=== PATIENT | female | born 1990 | race Caucasian/White ===

== ENCOUNTER 2017-07-18 18:54 | Outpatient (CLI) | payer OTHER ==
[2017-07-18 19:53] LABS: ADD UMIC YES; UR ASCORBIC ACID NEGATIVE (NEGATIVE); UR BACTERIA FEW /HPF (NONE SEEN); UR BILIRUBIN (Dip) NEGATIVE (NEGATIVE); UR BLOOD (Dip) NEGATIVE (NEGATIVE); UR CLARITY CLEAR (CLEAR); UR COLOR YELLOW (YELLOW); UR GLUCOSE (Dip) NEGATIVE (NEGATIVE); UR KETONES (Dip) TRACE mg/dL (NEGATIVE); UR LEUKOCYTE ESTERASE (Dip) 3+ Leu/ul (NEGATIVE); UR NITRITE (Dip) NEGATIVE (NEGATIVE); UR RBC 2 /HPF (0-5); UR SPECIFIC GRAVITY (Dip) 1.008 (1.003-1.030); UR SQUAMOUS EPITHELIAL CELL FEW /HPF (FEW); UR TOTAL PROTEIN (Dip) NEGATIVE (NEGATIVE); UR UROBILINOGEN (Dip) NEGATIVE (NEGATIVE); UR WBC 2 /HPF (0-5)
[2017-07-18 20:09] LABS: RUPTURE FETAL MEMBRANES NEGATIVE (NEGATIVE)
[2017-07-18] MEDS ORDERED: TERBUTALINE 1 MG/ML INJ SC ×2 (20:30)
[2017-07-18] MEDS ORDERED: LACTATED RINGER'S 1,000 ML IV* (20:30)
[2017-07-18] MEDS: BETAMET NA PHOS/AC(6 MG/ML) 5ML INJ IM (20:59)
== END 2017-07-18 23:02 | disposition home or self-care (01) ==
LOC: OBT 18:54 → L-D 18:56 → OBT 23:02
DX: O47.03 False labor before 37 completed weeks of gestation, third trimester (principal); Z3A.35 35 weeks gestation of pregnancy
CPT/HCPCS: 76817; 76818; 81001; 84112

== ENCOUNTER 2017-07-19 21:00 | Outpatient (CLI) | payer OTHER ==
[2017-07-19] MEDS: NIFEdipine 10 MG CAP PO (22:00)
[2017-07-19] MEDS: BETAMET NA PHOS/AC(6 MG/ML) 5ML INJ IM (22:07)
[2017-07-20] MEDS: NIFEdipine 10 MG CAP PO (00:15)
[2017-07-20] MEDS ORDERED: NIFEdipine 10 MG CAP PO (01:30)
== END 2017-07-20 01:35 | disposition home or self-care (01) ==
LOC: OBT 21:00 → L-D 21:01
DX: O47.03 False labor before 37 completed weeks of gestation, third trimester (principal); Z3A.35 35 weeks gestation of pregnancy
CPT/HCPCS: 36415; 96372

== ENCOUNTER 2017-08-02 09:56 | Outpatient (CLI) | payer OTHER ==
[2017-08-02] MEDS: ACETAMINOPHEN 500 MG TAB PO (12:53)
== END 2017-08-02 13:55 | disposition home or self-care (01) ==
LOC: OBT 09:56 → L-D 09:56 → OBT 13:55
DX: O62.9 Abnormality of forces of labor, unspecified (principal); Z3A.37 37 weeks gestation of pregnancy
CPT/HCPCS: 76818

== ENCOUNTER 2017-08-08 03:27 | Inpatient (IN) | payer OTHER ==
[2017-08-08] MEDS ORDERED: LACTATED RINGER'S 1,000 ML IV (03:56)
[2017-08-08] MEDS ORDERED: LIDOCAINE 1% (MPF) 30 ML INJ INJ (04:00)
[2017-08-08] MEDS ORDERED: MISOPROSTOL 200 MCG TAB PR (04:00)
[2017-08-08] MEDS ORDERED: METHYLERGONOVINE 0.2 MG INJ IM (04:00)
[2017-08-08] MEDS ORDERED: CARBOPROST 250 MCG INJ IM (04:00)
[2017-08-08] MEDS ORDERED: OXYTOCIN 30 UNITS/LR 500 ML IV ×2 (04:00)
[2017-08-08] MEDS ORDERED: AMPICILLIN 2 GM/NS (PMX) 100 ML (04:10)
[2017-08-08] MEDS: LACTATED RINGER'S 1,000 ML IV ×3 (04:34→15:30)
[2017-08-08] MEDS: AMPICILLIN 2 GM/NS (PMX) 100 ML IV (04:35)
[2017-08-08 04:58] LABS: ADD MAN DIFF? NO
[2017-08-08 05:00] LABS: BASOPHILS % 0.3 % (0.0-2.0); EOSINOPHILS # 0.1 10^3/ul (0.0-0.5); EOSINOPHILS % 0.6 % (0.0-7.0); LYMPHOCYTES # 2.2 10^3/ul (0.8-2.9); LYMPHOCYTES % 18.8 % (15.0-51.0); MEAN CORPUSCULAR HEMOGLOBIN 31.7 pg (29.0-33.0); MEAN CORPUSCULAR HGB CONC 34.2 g/dl (32.0-37.0); MEAN CORPUSCULAR VOLUME 92.7 fl (82.0-101.0); MONOCYTE # 0.8 10^3/ul (0.3-0.9); MONOCYTES % 6.8 % (0.0-11.0); NEUTROPHIL # 8.3 10^3/ul (1.6-7.5); NEUTROPHILS % 72.7 % (39.0-77.0); PLATELET COUNT 183 10^3/UL (140-415); RED CELL DISTRIBUTION WIDTH 13.7 % (11.5-14.5)
[2017-08-08 05:00] LABS: WHITE BLOOD COUNT 11.4 10^3/ul (4.8-10.8)
[2017-08-08] MEDS ORDERED: MINERAL OIL LIGHT 10 ML VIAL TOP (05:00)
[2017-08-08 05:21] LABS: PROTIME 11.1 Sec (11.9-14.9); PT RATIO 0.9
[2017-08-08 05:22] LABS: PARTIAL THROMBOPLASTIN TIME 25.5 Sec (25.0-35.0)
[2017-08-08 05:50] LABS: HEPATITIS B SURFACE ANTIGEN NEGATIVE (NEGATIVE)
[2017-08-08] MEDS: BUTORPHANOL 2 MG INJ IV (05:54)
[2017-08-08] MEDS: AMPICILLIN 1 GM/NS (PMX) 50 ML IV ×5 (08:29→23:48)
[2017-08-08] MEDS ORDERED: FENTAnyl 2MCG/ML-ROPIV 0.2% 100 ML (09:14)
[2017-08-08 15:20] LABS: RAPID PLASMA REAGIN NONREACTIVE (NR)
[2017-08-08] MEDS: OXYTOCIN 30 UNITS/LR 500 ML IV (15:32)
[2017-08-08] MEDS: FENTAnyl 2MCG/ML-ROPIV 0.2% 100 ML BAG EPI ×2 (16:38→23:57)
[2017-08-08] MEDS ORDERED: NALOXONE (0.4 MG/ML) INJ IV (17:00)
[2017-08-09] MEDS: ACETAMINOPHEN 500 MG TAB PO (03:23)
[2017-08-09] MEDS: LACTATED RINGER'S 1,000 ML IV ×3 (03:46→23:12)
[2017-08-09] MEDS: GENTAMICIN 120 MG/NS (PMX) 100 ML IVPB (04:07)
[2017-08-09] MEDS: AMPICILLIN 1 GM/NS (PMX) 50 ML IV ×3 (04:08→09:18)
[2017-08-09] MEDS ORDERED: OXYTOCIN 30 UNITS/LR 500 ML IV ×2 (08:30→13:30)
[2017-08-09] MEDS ORDERED: CEFAZOLIN 2 GM/50 ML (PMX) 50 ML IV (08:30)
[2017-08-09] MEDS: METOCLOPRAMIDE 10 MG INJ IV (08:41)
[2017-08-09] MEDS: ONDANSETRON 4 MG INJ IV ×2 (08:41→14:29)
[2017-08-09] MEDS: FAMOTIDINE 20 MG INJ IV (08:41)
[2017-08-09] MEDS ORDERED: morphine SULFATE/PF (10 MG/10 ML) INJ (08:51)
[2017-08-09] MEDS ORDERED: BUPIVACAINE 0.75%/DEXT (SPINAL) 2 ML INJ (08:52)
[2017-08-09] MEDS ORDERED: OXYTOCIN 10 UNIT INJ (08:52)
[2017-08-09] MEDS ORDERED: EPINEPHrine 1 MG INJ (08:56)
[2017-08-09] MEDS ORDERED: PHENYLephrine (100 MCG/ML) 5ML SYG (09:44)
[2017-08-09] MEDS ORDERED: MIDAZOLAM 1 MG/ML 2 ML INJ (09:50)
[2017-08-09] MEDS ORDERED: PROPOFOL 20 ML (10:00)
[2017-08-09] MEDS ORDERED: HYDROmorphONE 2 MG/ML SYG (10:17)
[2017-08-09] MEDS ORDERED: DIPHENHYDRAMINE 50 MG INJ IV ×3 (11:00→13:30)
[2017-08-09] MEDS ORDERED: NALOXONE (0.4 MG/ML) INJ IV (11:00)
[2017-08-09] MEDS ORDERED: FENTAnyl 50 MCG/ML VIAL IV ×2 (11:00)
[2017-08-09] MEDS ORDERED: KETOROLAC 30 MG INJ IV (11:00)
[2017-08-09] MEDS ORDERED: NALBUPHINE HCL (10 MG/1 ML) INJ IV (11:00)
[2017-08-09] MEDS ORDERED: ZOLPIDEM 5 MG TAB PO ×2 (11:00→13:30)
[2017-08-09] MEDS ORDERED: HYDROmorphONE 1 MG/5 ML IV SYRINGE IV ×3 (11:00)
[2017-08-09] MEDS ORDERED: HYDROmorphONE 0.5 MG/0.5 ML SYG IV ×2 (11:00)
[2017-08-09] MEDS ORDERED: ONDANSETRON 4 MG INJ IV ×2 (11:00→13:30)
[2017-08-09] MEDS: OXYTOCIN 30 UNITS/LR 500 ML IV (11:35)
[2017-08-09] MEDS: KETOROLAC 30 MG INJ IV (11:46)
[2017-08-09] MEDS ORDERED: CARBOPROST 250 MCG INJ IM (13:30)
[2017-08-09] MEDS ORDERED: METHYLERGONOVINE 0.2 MG INJ IM (13:30)
[2017-08-09] MEDS ORDERED: MISOPROSTOL 200 MCG TAB PR (13:30)
[2017-08-09] MEDS: MINERAL OIL LIGHT 10 ML VIAL TOP (14:05)
[2017-08-09] MEDS: GENTAMICIN 80 MG/NS (PMX) 50 ML IVPB (14:05)
[2017-08-09] MEDS: ACETAMINOPHEN 1000MG/100ML IV 100 ML IVPB (14:05)
[2017-08-09] MEDS: LANOLIN 7 GM TUBE TOP (14:30)
[2017-08-10] MEDS: LACTATED RINGER'S 1,000 ML IV ×3 (06:45→21:07)
[2017-08-10 09:44] LABS: ADD MAN DIFF? NO
[2017-08-10 09:52] LABS: BASOPHIL # 0.1 10^3/ul (0.0-0.1); BASOPHILS % 0.3 % (0.0-2.0); EOSINOPHILS % 0.2 % (0.0-7.0); HEMATOCRIT 31.9 % (37.0-47.0); HEMOGLOBIN 11.1 g/dl (12.0-16.0); LYMPHOCYTES # 1.1 10^3/ul (0.8-2.9); LYMPHOCYTES % 6.9 % (15.0-51.0); MEAN CORPUSCULAR HEMOGLOBIN 32.3 pg (29.0-33.0); MEAN CORPUSCULAR HGB CONC 34.8 g/dl (32.0-37.0); MEAN CORPUSCULAR VOLUME 92.7 fl (82.0-101.0); MEAN PLATELET VOLUME 10.6 fl (7.4-10.4); MONOCYTE # 0.9 10^3/ul (0.3-0.9); MONOCYTES % 5.5 % (0.0-11.0); NEUTROPHIL # 13.9 10^3/ul (1.6-7.5); NEUTROPHILS % 85.9 % (39.0-77.0); PLATELET COUNT 180 10^3/UL (140-415); RED BLOOD COUNT 3.44 10^6/ul (4.20-5.40); RED CELL DISTRIBUTION WIDTH 13.6 % (11.5-14.5)
[2017-08-10 09:52] LABS: WHITE BLOOD COUNT 16.2 10^3/ul (4.8-10.8)
[2017-08-10] MEDS: SENNA/DOCUSATE NA (8.6MG/50MG) TAB PO ×2 (10:14→21:52)
[2017-08-10] MEDS: OXYCODONE/ACETAMINOPHEN (5/325) TAB PO ×2 (10:28→16:16)
[2017-08-10] MEDS: IBUPROFEN 600 MG TAB PO ×4 (12:00→18:32)
[2017-08-10] MEDS: CEFAZOLIN 2 GM/50 ML (PMX) 50 ML IVPB ×2 (12:43→21:52)
[2017-08-11] MEDS: IBUPROFEN 600 MG TAB PO ×4 (00:30→17:58)
[2017-08-11] MEDS: OXYCODONE/ACETAMINOPHEN (5/325) TAB PO ×3 (01:53→17:06)
[2017-08-11] MEDS: LACTATED RINGER'S 1,000 ML IV ×3 (05:28→21:28)
[2017-08-11] MEDS: CEFAZOLIN 2 GM/50 ML (PMX) 50 ML IVPB (05:46)
[2017-08-11] MEDS: SENNA/DOCUSATE NA (8.6MG/50MG) TAB PO ×2 (08:48→21:47)
[2017-08-11 10:01] LABS: ADD MAN DIFF? NO
[2017-08-11 10:03] LABS: WHITE BLOOD COUNT 13.7 10^3/ul (4.8-10.8)
[2017-08-11 10:03] LABS: BASOPHILS % 0.3 % (0.0-2.0); EOSINOPHILS # 0.2 10^3/ul (0.0-0.5); EOSINOPHILS % 1.2 % (0.0-7.0); HEMATOCRIT 35.8 % (37.0-47.0); HEMOGLOBIN 11.7 g/dl (12.0-16.0); LYMPHOCYTES # 1.7 10^3/ul (0.8-2.9); LYMPHOCYTES % 12.4 % (15.0-51.0); MEAN CORPUSCULAR HEMOGLOBIN 31.4 pg (29.0-33.0); MEAN CORPUSCULAR HGB CONC 32.7 g/dl (32.0-37.0); MEAN PLATELET VOLUME 10.7 fl (7.4-10.4); MONOCYTE # 0.6 10^3/ul (0.3-0.9); MONOCYTES % 4.5 % (0.0-11.0); NEUTROPHILS % 80.7 % (39.0-77.0); PLATELET COUNT 234 10^3/UL (140-415); RED BLOOD COUNT 3.73 10^6/ul (4.20-5.40); RED CELL DISTRIBUTION WIDTH 13.7 % (11.5-14.5)
[2017-08-11 12:59] LABS: ADD UMIC YES; UR ASCORBIC ACID NEGATIVE (NEGATIVE); UR BILIRUBIN (Dip) NEGATIVE (NEGATIVE); UR BLOOD (Dip) 3+ mg/dL (NEGATIVE); UR CLARITY CLEAR (CLEAR); UR COLOR YELLOW (YELLOW); UR GLUCOSE (Dip) NEGATIVE (NEGATIVE); UR KETONES (Dip) NEGATIVE (NEGATIVE); UR LEUKOCYTE ESTERASE (Dip) NEGATIVE Leu/ul (NEGATIVE); UR NITRITE (Dip) NEGATIVE (NEGATIVE); UR RBC 7 /HPF (0-5); UR SPECIFIC GRAVITY (Dip) 1.011 (1.003-1.030); UR TOTAL PROTEIN (Dip) NEGATIVE (NEGATIVE); UR UROBILINOGEN (Dip) NEGATIVE (NEGATIVE); UR WBC 2 /HPF (0-5)
[2017-08-12] MEDS: IBUPROFEN 600 MG TAB PO ×3 (00:09→12:56)
[2017-08-12] MEDS: HYDROCORTISONE 2.5% 20 GM CR TOP ×3 (00:09→22:27)
[2017-08-12] MEDS: OXYCODONE/ACETAMINOPHEN (5/325) TAB PO (03:21)
[2017-08-12] MEDS: LACTATED RINGER'S 1,000 ML IV ×3 (05:28→21:28)
[2017-08-12] MEDS: SENNA/DOCUSATE NA (8.6MG/50MG) TAB PO ×2 (08:51→22:27)
[2017-08-13] MEDS: LACTATED RINGER'S 1,000 ML IV ×3 (05:28→23:46)
[2017-08-13] MEDS: IBUPROFEN 600 MG TAB PO ×4 (05:44→23:36)
[2017-08-13] MEDS: SENNA/DOCUSATE NA (8.6MG/50MG) TAB PO ×2 (09:00→21:18)
[2017-08-13 14:57] LABS: ADD UMIC YES; UR ASCORBIC ACID NEGATIVE (NEGATIVE); UR BILIRUBIN (Dip) NEGATIVE (NEGATIVE); UR BLOOD (Dip) 2+ mg/dL (NEGATIVE); UR CLARITY CLEAR (CLEAR); UR COLOR STRAW (YELLOW); UR GLUCOSE (Dip) NEGATIVE (NEGATIVE); UR KETONES (Dip) NEGATIVE (NEGATIVE); UR LEUKOCYTE ESTERASE (Dip) NEGATIVE Leu/ul (NEGATIVE); UR NITRITE (Dip) NEGATIVE (NEGATIVE); UR RBC 6 /HPF (0-5); UR TOTAL PROTEIN (Dip) NEGATIVE (NEGATIVE); UR UROBILINOGEN (Dip) NEGATIVE (NEGATIVE); UR WBC 1 /HPF (0-5)
[2017-08-13 15:00] LABS: ADD MAN DIFF? NO
[2017-08-13 15:07] LABS: ABNORMAL IP MESSAGE 1; BASOPHILS % 0.1 % (0.0-2.0); EOSINOPHILS % 0.2 % (0.0-7.0); HEMATOCRIT 29.7 % (37.0-47.0); HEMOGLOBIN 10.2 g/dl (12.0-16.0); LYMPHOCYTES # 0.5 10^3/ul (0.8-2.9); LYMPHOCYTES % 6.4 % (15.0-51.0); MEAN CORPUSCULAR HEMOGLOBIN 32.3 pg (29.0-33.0); MEAN CORPUSCULAR HGB CONC 34.3 g/dl (32.0-37.0); MEAN PLATELET VOLUME 9.8 fl (7.4-10.4); MONOCYTE # 0.4 10^3/ul (0.3-0.9); MONOCYTES % 5.1 % (0.0-11.0); PLATELET COUNT 226 10^3/UL (140-415); RED BLOOD COUNT 3.16 10^6/ul (4.20-5.40); RED CELL DISTRIBUTION WIDTH 13.1 % (11.5-14.5)
[2017-08-13 15:07] LABS: WHITE BLOOD COUNT 8.1 10^3/ul (4.8-10.8)
[2017-08-13 15:12] LABS: POSITIVE DIFF @See below
[2017-08-13] MEDS: HYDROCORTISONE 2.5% 20 GM CR TOP ×4 (15:24→21:18)
[2017-08-13] MEDS: CEFTRIAXONE 1 GM/50 ML (PMX) 50 ML IVPB ×2 (16:06→16:52)
[2017-08-13] MEDS: ACETAMINOPHEN 325 MG TAB PO (17:17)
[2017-08-13] MEDS: PIPER-TAZO 3.375 GM IV (PMX) 100 ML IVPB ×2 (18:27→23:36)
[2017-08-14] MEDS: LACTATED RINGER'S 1,000 ML IV (05:28)
[2017-08-14] MEDS: PIPER-TAZO 3.375 GM IV (PMX) 100 ML IVPB ×4 (05:37→23:57)
[2017-08-14] MEDS: IBUPROFEN 600 MG TAB PO ×4 (05:37→23:57)
[2017-08-14 07:02] LABS: ADD MAN DIFF? NO
[2017-08-14 07:07] LABS: BASOPHILS % 0.3 % (0.0-2.0); EOSINOPHILS % 0.3 % (0.0-7.0); HEMATOCRIT 27.4 % (37.0-47.0); HEMOGLOBIN 9.1 g/dl (12.0-16.0); LYMPHOCYTES # 1.2 10^3/ul (0.8-2.9); LYMPHOCYTES % 16.3 % (15.0-51.0); MEAN CORPUSCULAR HEMOGLOBIN 31.5 pg (29.0-33.0); MEAN CORPUSCULAR HGB CONC 33.2 g/dl (32.0-37.0); MEAN CORPUSCULAR VOLUME 94.8 fl (82.0-101.0); MEAN PLATELET VOLUME 9.8 fl (7.4-10.4); MONOCYTE # 0.5 10^3/ul (0.3-0.9); MONOCYTES % 7.5 % (0.0-11.0); NEUTROPHIL # 5.3 10^3/ul (1.6-7.5); NEUTROPHILS % 73.8 % (39.0-77.0); PLATELET COUNT 185 10^3/UL (140-415); RED BLOOD COUNT 2.89 10^6/ul (4.20-5.40); RED CELL DISTRIBUTION WIDTH 13.2 % (11.5-14.5)
[2017-08-14 07:07] LABS: WHITE BLOOD COUNT 7.2 10^3/ul (4.8-10.8)
[2017-08-14] MEDS: HYDROCORTISONE 2.5% 20 GM CR TOP ×4 (09:00→21:34)
[2017-08-14] MEDS: SENNA/DOCUSATE NA (8.6MG/50MG) TAB PO ×2 (09:00→21:00)
[2017-08-15] MEDS: LACTATED RINGER'S 1,000 ML IV ×2 (01:32→11:01)
[2017-08-15] MEDS: IBUPROFEN 600 MG TAB PO ×3 (05:49→17:28)
[2017-08-15] MEDS: PIPER-TAZO 3.375 GM IV (PMX) 100 ML IVPB ×2 (05:49→11:00)
[2017-08-15] MEDS: SENNA/DOCUSATE NA (8.6MG/50MG) TAB PO (08:41)
[2017-08-15] MEDS: HYDROCORTISONE 2.5% 20 GM CR TOP ×2 (13:48)
[2017-08-15] MEDS: DIPHTH/TET/ACEL PERTUSS (ADULT) 0.5 ML VIAL IM* (17:28)
== END 2017-08-15 20:15 | disposition home or self-care (01) | DRG 766 ==
LOC: OBT 03:27 → L-D 08-09 08:52 → PP1 08-09 14:11 → OBT 04:00 → L-D 04:04
PROVIDERS: Obstetrics & Gynecology
PROC: 10D00Z1 Extraction of Products of Conception, Low, Open Approach (ICD-10-PCS; principal; 2017-08-09 09:30)
PROC: 3E033VJ Introduction of Other Hormone into Peripheral Vein, Percutaneous Approach (ICD-10-PCS; 2017-08-09 09:30)
DX: O62.0 Primary inadequate contractions (principal); O63.1 Prolonged second stage (of labor); Z3A.38 38 weeks gestation of pregnancy; Z37.0 Single live birth
CPT/HCPCS: 62319; 81001; 85025; 85610; 85730; 86592; 86850; 86900; 86901; 87040; 87086; 87340; 99464